=== PATIENT | female | born 1945 | race Caucasian/White ===

== ENCOUNTER 2020-01-11 13:10 | Outpatient (CLI) | payer MEDICARE, OTHER ==
[~2020-01-11] VITALS: Ht 172.8 cm; Wt 102.0 kg
[~2020-01-11 13:10] MED LIST: NORCO 325 MG-7.1 TAB PO; TENORMIN 2525 MG/TAB PO
[2020-01-11 13:48] VITALS: BP 155/85; PULSE 80; TEMP 98.4
[2020-01-11 13:51] LABS: POTASSIUM 3.5 mmol/L (3.4-5.0)
[2020-01-11 13:55] LABS: INR 1.5 (0.8-3.0); PROTHROMBIN TIME 16.9 SECONDS (9.7-12.8)
[2020-01-11] MEDS ORDERED: CARDIZEM CD 24240 MG PO (14:06)
[2020-01-11] MEDS ORDERED: ELIQUIS 5MG PO (14:06)
[2020-01-11] MEDS ORDERED: LIPITOR 10MG10 MG PO (14:07)
[2020-01-11] MEDS ORDERED: HCTZ 25MG TAB25 MG PO (14:07)
[2020-01-11] MEDS ORDERED: TENORMIN 5050 MG/TAB PO (14:08)
[2020-01-11 14:26] LABS: THYROID STIMULATING HORMONE 3.37 uIU/mL (0.465-4.680)
[2020-01-11 15:22] VITALS: BP 129/69; PULSE 63; TEMP 97.8
[2020-01-11 15:37] VITALS: BP 130/67; PULSE 63; TEMP 97.8
[2020-01-11 15:52] VITALS: BP 139/64; PULSE 64; TEMP 97.8
[2020-01-11 16:07] VITALS: BP 134/65; PULSE 66; TEMP 97.8
[2020-01-11 16:37] VITALS: BP 135/69; PULSE 64; TEMP 97.8
== END 2020-01-11 17:00 | disposition home or self-care (01) ==
LOC: EUO 13:10 → EDSTATUS 14:24 → EUO 17:00
PROVIDERS: Internal Medicine Interventional Cardiology
DX: I48.0 Paroxysmal atrial fibrillation (principal)
CPT/HCPCS: J2704